=== PATIENT | male | born 1985 | race Hispanic/Latino ===

== ENCOUNTER 2019-09-26 13:00 | Inpatient (IN) | payer OTHER ==
[~2019-09-26] VITALS: Ht 160 cm; Wt 78.9 kg
[2019-09-26] MEDS ORDERED: LIDOCAINE HCL 1% 20 ML VIAL ONE (13:07)
[2019-09-26 13:19] LABS: BASOPHILS % (AUTO) 0.3 % (0.0-5.0); EOSINOPHILS % (AUTO) 0.4 % (0.0-8.0); HEMATOCRIT 46.5 % (42-54); LYMPHOCYTES % (AUTO) 6.9 % (21.0-51.0); MEAN CORPUSCULAR HEMOGLOBIN 30.8 pg (27.0-33.0); MEAN CORPUSCULAR HGB CONC 35.1 g/dL (32.0-36.0); MEAN CORPUSCULAR VOLUME 87.9 fL (79-99); MONOCYTES % (AUTO) 5.9 % (3.0-13.0); NEUTROPHILS % (AUTO) 86.1 % (40.0-77.0); PLATELET COUNT (AUTO) 224 K/uL (130-400); RED BLOOD CELL COUNT(AUTO) 5.29 MIL/uL (4.50-6.20); RED CELL DISTRIBUTION WIDTH 12.3 % (11.0-15.5); WHITE BLOOD COUNT (AUTO) 11.3 K/uL (4.8-10.8)
[2019-09-26] MEDS ORDERED: IOHEXOL 350 MG/ML 100ML INFUS..BTL IV ONE (13:24)
[2019-09-26 13:39] LABS: CARBON DIOXIDE 25 mmol/L (21-32); CHLORIDE 97 mmol/L (101-111); CREATININE 1.3 mg/dL (0.5-1.5); GLOMERULAR FILTR. RATE CALC 67 mL/min (>60); GLUCOSE,RANDOM 126 mg/dL (70-105); POTASSIUM 3.3 mmol/L (3.5-5.1); SODIUM SERUM 133 mmol/L (136-145); UREA NITROGEN, BLOOD 14 mg/dL (7-18)
[2019-09-26 13:43] LABS: ALANINE AMINOTRANSFERASE 26 U/L (12-78); ALBUMIN 4.4 g/dL (3.5-5.0); ASPARTATE AMINOTRANSFERASE 22 U/L (10-37); BILIRUBIN,TOTAL 0.2 mg/dL (0.2-1.0); TOTAL PROTEIN, SERUM 7.9 g/dL (6.0-8.3)
[2019-09-26 13:46] LABS: ALCOHOL, BLOOD < 3 mg/dL (0-10)
[2019-09-26 13:51] LABS: INR 0.92 (0.85-1.15); PARTIAL THROMBOPLASTIN TIME 22.9 SEC (26.3-35.5)
[2019-09-26] MEDS ORDERED: LORAZEPAM 2 MG/ML 1 ML VIAL ONE (13:57)
[2019-09-26] MEDS ORDERED: CEFAZOLIN SODIUM 1 GM VIAL ONE ×2 (13:57→18:52)
[2019-09-26] MEDS ORDERED: TETANUS/DIPHTHERIA TOXOID [ADULT] 0.5 ML VIAL IM ONE (13:58)
[2019-09-26 14:29] LABS: ACETAMINOPHEN < 1 mcg/mL (10-29); SALICYLATE < 2.8 mg/dL (2.8-20.0)
[2019-09-26 14:42] LABS: APPEARANCE,URINE Clear (CLEAR); BILIRUBIN,URINE Negative (NEGATIVE); COLOR,URINE Yellow (YELLOW); GLUCOSE, URINE (UA) Negative (NEGATIVE); KETONES,URINE Negative (NEGATIVE); LEUKOCYTE ESTERASE ,URINE Negative (NEGATIVE); NITRATE,URINE Negative (NEGATIVE); OCCULT BLOOD,URINE Negative (NEGATIVE); PROTEIN,URINE Trace mg/dL (NEGATIVE)
[2019-09-26 14:50] LABS: AMPHET/METH SCREEN,URINE POSITIVE (NEGATIVE); BACTERIA,URINE Rare /HPF (None Seen); BARBITURATE SCREEN, URINE NEGATIVE (NEGATIVE); BENZODIAZEPINES SCREEN,URINE NEGATIVE (NEGATIVE); CANNABINOID SCREEN,URINE NEGATIVE (NEGATIVE); COCAINE SCREEN,URINE POSITIVE (NEGATIVE); OPIATE SCREEN,URINE NEGATIVE (NEGATIVE); PHENCYCLIDINE SCREEN,URINE NEGATIVE (NEGATIVE); RBC,URINE 0-1 /HPF (0-1); SPERM,URINE Rare /HPF (None Seen); SQUAMOUS EPITHELIAL CELL,UR Rare /HPF (0-2); WBC,URINE 0-1 /HPF (0-1)
[2019-09-26] MEDS ORDERED: SODIUM CHLORIDE 0.9% 100 ML IV ONE (18:52)
[2019-09-26] MEDS ORDERED: ACETAMINOPHEN 325 MG TAB ONE (19:18)
[2019-09-26 21:00] VITALS: BP 110/66
[2019-09-26] MEDS: SODIUM CHLORIDE 0.9% 1000ML 1,000 ML IV SCH (21:00)
[2019-09-26 23:00] VITALS: BP 112/61
[2019-09-27] VITALS (22 sets, daily range): BP systolic 98–140; BP diastolic 54–87
[2019-09-27] MEDS: CEFAZOLIN SODIUM 1 GM VIAL IVP SCH ×4 (01:13→18:51)
[2019-09-27] MEDS: ACETAMINOPHEN 325 MG TAB PO PRN (05:37)
--- NOTE | 2019-09-27 07:00 | NUR ---
PATIENT IS ON A SUICIDAL 1:1. DENIA MONTESSORI TEACHER AT BEDSIDE. ALL POTENTIAL HAZARDS REMOVED FROM ROOM BY SERVICE COUNSELOR. PATIENT DENIES ANY SUICIDAL IDEATION RIGHT NOW, ALSO DENIES DEPRESSIVE DISORDER, STATES THAT HE HAS NEVER SEEN A PSYCHIATRIST. WHEN ASKED ABOUT THE INCIDENT, PATIENT STATED THAT HIS BEHAVIOR WAS MAINLY DUE TO "TOO MUCH DRUGS" UDS POSITIVE FOR COCAINE AND AMPHETAMINES.
[2019-09-27] MEDS ORDERED: LIDOCAINE HCL-MPF 1% 2ML VIAL IV PRN (11:00)
[2019-09-27] MEDS ORDERED: POTASSIUM CHLORIDE 20MEQ/100ML 100 ML IV PRN (11:00)
[2019-09-27] MEDS ORDERED: LIDOCAINE PF 2% 5ML ABBOJECT ONE (12:17)
[2019-09-27] MEDS ORDERED: DEXAMETHASONE SOD PHOSPHATE 10MG/ML 1ML VIAL ONE (12:17)
[2019-09-27] MEDS ORDERED: NEOSTIGMINE 5MG/5ML SYR IV ONE (12:18)
[2019-09-27] MEDS ORDERED: ONDANSETRON HCL 4 MG/2 ML VIAL ONE (12:18)
[2019-09-27] MEDS ORDERED: MIDAZOLAM HCL 1 MG/ML 2ML VIAL ONE (12:18)
[2019-09-27] MEDS ORDERED: PROPOFOL 10 MG/ML 20ML VIAL IV ONE (12:18)
[2019-09-27] MEDS ORDERED: GLYCOPYRROLATE 1 MG/5 ML SYRINGE ONE (12:18)
[2019-09-27] MEDS ORDERED: ROCURONIUM 10MG/1ML SYR 10 MG/ML ML ONE (12:19)
[2019-09-27] MEDS ORDERED: FENTANYL CITRATE PF 50 MCG/1 ML 2ML VIAL ONE ×2 (12:19→13:55)
[2019-09-27] MEDS ORDERED: BUPIVACAINE/PF 0.5% 30ML VIAL ONE (13:15)
[2019-09-27] MEDS ORDERED: LACTATED RINGERS 1000ML 1,000 ML IV ONE (14:48)
--- NOTE | 2019-09-27 14:51 | NUR ---
SS REFERRAL/ Per CM, pt not giving much information, possible suicide attempt. Pt is confidential. Yana spoke to Marilia, pt's nurse. Pt's SISTER CYNDI WEINER [phone] called, asking for pt information. Nurse told them that pt was confidential and nurse could not give any information. Sister upset, stated pt was Schizophrenic and not able to make decisions for self. Nurse requesting family provide psych records with dx. Yana called sister Cyndi and informed her that I can not give any information on pt, but I can listen to any information she wants to provide me on pt. Sister reports that pt has lived in [place] for 7yrs with his other sister, and arrived to the [place] yesterday. Sister in [place] could no longer handle him in his current psychotic state and sister had pt's niece DIMITRI SOLOMON drive him to [place] to be with his mother RUBENS HERNANDEZ [phone]. Pt has never or had kids. 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 Pt never believed he was sick or had mental problems so he never re applied for disability after he turned 16. Per sister, pt has hx of delusions, homicidal thoughts,hearing voices, can be very aggressive and combative. Sister denies any hx of suicidal thoughts or attempts until yesterday. Per sister, yesterday after pt arrived he was acting strange. Pt was delusional, making no sense, did not realize or understand that he was in the [place]. Pt was outside on porch pacing and smoking cigarettes. Pt told family to "go inside". Niece witness pt cut his throat and sister witnessed pt cut his arm. Sister ran to pt and "bear hugged" pt to prevent him from running away until ambulance arrived. Family felt ambulance was taking too long and brought pt to hospital by private car. Family concerned for staff, afraid someone can hurt by pt if he gets aggressive or physical. Family wants pt to be evaluated by psych for possible meds or placement. If pt does not meet criteria for placement, family will take pt back to mothers home. Per family, pt has no DME or in home care services. YANA spoke to nurse Marilia and informed nurse of all information family has provided on pt. Nurse to inform MD of above and family requests.
--- NOTE | 2019-09-27 15:55 | NUR ---
I ASKED PATIENT IF HE WISHED TO REMAIN CONFIDENTIAL IN OUR SYSTEM. I EXPLAINED THAT SINCE HE'S CONFIDENTIAL WE COULDN'T GIVE ANY INFORMATION TO HIS FAMILY OR TRANSFER ANY CALLS. PATIENT VERBALIZED UNDERSTANDING, STATED THAT HE WANTS TO TALK TO HIS SISTER DO WEINER. PATIENT RECEIVED CALL DIRECTLY TO MY SPECTRA NUMBER, CALL WILL SISTER WITH NO ISSUES. I CALLED REGISTRATION TO LET THEM KNOW.
[2019-09-27] MEDS: SODIUM CHLORIDE 0.9% 1000ML 1,000 ML IV SCH (17:06)
[2019-09-27] MEDS ORDERED: ACETAMINOPHEN-CODEINE 300/30MG TAB PO PRN (19:00)
[2019-09-28] MEDS: CEFAZOLIN SODIUM 1 GM VIAL IVP SCH ×3 (00:01→12:03)
[2019-09-28 00:10] VITALS: BP 103/46
[2019-09-28 04:00] VITALS: BP 106/66
[2019-09-28 04:18] LABS: ALBUMIN 3.4 g/dL (3.5-5.0); BILIRUBIN,TOTAL 0.4 mg/dL (0.2-1.0); CREATININE 1.3 mg/dL (0.5-1.5); POTASSIUM 4.5 mmol/L (3.5-5.1); TOTAL PROTEIN, SERUM 6.7 g/dL (6.0-8.3)
[2019-09-28] MEDS: SODIUM CHLORIDE 0.9% 1000ML 1,000 ML IV SCH (05:09)
[2019-09-28 08:00] VITALS: BP 108/69
[2019-09-28 11:23] LABS: BASOPHILS % (AUTO) 0.3 % (0.0-5.0); EOSINOPHILS % (AUTO) 0.3 % (0.0-8.0); LYMPHOCYTES % (AUTO) 14.2 % (21.0-51.0); MEAN CORPUSCULAR HEMOGLOBIN 30.9 pg (27.0-33.0); MEAN CORPUSCULAR HGB CONC 34.4 g/dL (32.0-36.0); MEAN CORPUSCULAR VOLUME 89.8 fL (79-99); MONOCYTES % (AUTO) 6.5 % (3.0-13.0); NEUTROPHILS % (AUTO) 78.4 % (40.0-77.0); PLATELET COUNT (AUTO) 220 K/uL (130-400); RED BLOOD CELL COUNT(AUTO) 4.79 MIL/uL (4.50-6.20); RED CELL DISTRIBUTION WIDTH 12.2 % (11.0-15.5); WHITE BLOOD COUNT (AUTO) 11.7 K/uL (4.8-10.8)
[2019-09-28 11:58] VITALS: BP 105/53
[2019-09-28 16:00] VITALS: BP 115/63
[2019-09-28 20:08] VITALS: BP 122/56
--- NOTE | 2019-09-28 21:36 | NUR ---
NOTE RECEIVED CALL FROM PSYCH PARTITION ASSEMBLER SAYS SHE HAS NOT GOTTEN DOCUMENTS VIA EMAIL SHE HAD PROVIDED EARLIER TO [facility] NURSE AND CHILDREN'S MINISTER. PROVIDED NOW A FAX NUMBER TO HAVE DOCUMENTS SENT. INFORMATION GIVEN TO CHILDREN'S MINISTER AND WAS CARRIED OUT.
--- NOTE | 2019-09-28 22:30 | NUR ---
NOTE RECEIVED CALL FROM PSYCH SEVERITY OF ILLNESS COORDINATOR. SAYS THAT HAS HEARD FROM [facility] ABOUT ACCEPTANCE PATIENT IS LIKELY TO BE ACCEPTED. SAYS SHE IS AWAITING ON ANOTHER FACILITY WELL. ASKED IF WE HAD CLEARANCE IN CHART. DISCUSSED WITH HER THAT I DID NOT SEE ANY ORDER OR DICTATION NOTE FROM PRIMARY MD DR. GUTIERREZ/ANASTASIA CLEARING PATIENT. ONLY OK FROM CONSULTING DR. MUNOZ. SHE SAYS IT IS NEEDED FROM PRIMARY BEFORE PROCEEDING. CONTACTED BREAD RACKER LAN Romero SAYS SHE WILL TRY TO CONTACT DAYSHIFT NURSE ABOUT IT AND IN MEAN TIME ILL BE PAGING DR. GUTIERREZ VIA ANSWERING SERVICE.
--- NOTE | 2019-09-28 23:10 | NUR ---
NOTE SPOKE TO EXTRACTOR MACHINE OPERATOR FOR UPDATE. NO CALL BACK HAS BEEN OBTAINED FROM DR. GUTIERREZ. SHE SAYS IF NO CALL BACK YET FROM FOR CLEARANCE FROM PRIMARY MD THEN SHE WILL HAVE TO RETURN TO THIS TOMORROW ONCE CLEARANCE IS OBTAINED. LEFT HER PHONE NUMBERS TO CONTACT HER IN AM. SHE ALSO ASKED TO SPEAK TO PATIENT AND HAD HIM COME TO PHONE. SPOKE TO GLASS LAMINATING OPERATOR AND UPDATED ON SITUATION. SHE SAYS SHE ALSO WAS NOT ABLE TO CONTACT DAYSHIFT NURSE. ADVISED TO TRY AGAIN IN MORNING.
--- NOTE | 2019-09-28 23:58 | NUR ---
NOTE RECEIVED CALL FROM PSYCH PLATE COLORER TO INFORM ME THAT SHE WILL BE SENDING AND OFFICER TO GUARD PATIENT SINCE WE ARE NOT ABLE TO DETAIN HIM IF HE CHOOSES TO GO AMA. SHE EXPLAINED THAT SHE CONSIDERS PATIENT A FLIGHT RISK BASED ON HER CONVERSATION WITH HIM EARLIER TODAY WHEN HE DID NOT WANT TO RECEIVE TREATMENT AT THAT TIME. ON HER LAST CONVERSATION WITH HIM HE WAS WILLING AND ACCEPTING.
--- NOTE | 2019-09-29 00:20 | NUR ---
NOTE OFFICER HERE TO GUARD PATIENT, SAYS WILL STAY UNTIL MORNING WHEN HE WILL GET RELIEVED, BUT WILL NOT BE IN ROOM WITH PATIENT. UPDATED EXTRUSION SUPERVISOR. SITTER WILL REMAIN AT BEDSIDE.
[2019-09-29 00:32] VITALS: BP 97/47
[2019-09-29] MEDS: CEFAZOLIN SODIUM 1 GM VIAL IVP SCH ×3 (00:42→12:10)
[2019-09-29 04:12] VITALS: BP 98/45
--- NOTE | 2019-09-29 06:41 | NUR ---
NOTE PAGED DR. GUTIERREZ VIA ANSWERING SERVICE TO OBTAIN CLEARANCE ORDER.
--- NOTE | 2019-09-29 09:53 | NUR ---
DR GUTIERREZ ROUNDED AND MEDICALLY CLEARED PT FROM HIS STAND POINT.
[2019-09-29] MEDS: ACETAMINOPHEN 325 MG TAB PO PRN (12:14)
--- NOTE | 2019-09-29 15:00 | NUR ---
cm note primary nurse states pt has been screened by ashtyn schultz and are recommending tansfer to [facility]. call made to [facility] , accepting information spoke to Estefani property preservation specialist. and provided accepting info, and # to call report. provided to primary nurse, HS updated.
--- NOTE | 2019-09-29 15:50 | NUR ---
SPOKE TO GUILLERMO AT [facility] TO GIVE REPORT ON PT. REMOVED PT IV, TIP INTACT. REVIEWED D/C INSTRUCTIONS AND PT STATED UNDERSTANDING. OFFICER ESCORTED PT TO FACILITY.
== END 2019-09-29 16:00 | disposition home or self-care (01) | DRG 983 ==
LOC: EDH 13:00 → EEVIPCON 13:01 → EDHIP 13:01 → 3BH 20:10
PROVIDERS: ADMIT Student in an Organized Health Care Education/Training Program; ATTEND Student in an Organized Health Care Education/Training Program
PROC: 3E0234Z Introduction of Serum, Toxoid and Vaccine into Muscle, Percutaneous Approach (ICD-10-PCS; 2019-09-27)
PROC: 0KBD0ZZ Excision of Left Hand Muscle, Open Approach (ICD-10-PCS; principal; 2019-09-27 13:45)
DX: S61.512A Laceration without foreign body of left wrist, initial encounter (principal); S11.91XA Laceration without foreign body of unspecified part of neck, initial encounter; F14.10 Cocaine abuse, uncomplicated; F15.10 Other stimulant abuse, uncomplicated; X78.8XXA Intentional self-harm by other sharp object, initial encounter; Y93.89 Activity, other specified; Y92.89 Other specified places as the place of occurrence of the external cause; Y99.8 Other external cause status; Z23 Encounter for immunization
CPT/HCPCS: 36415; 70450; 70498; 71275; 80053; 80305; 81001; 85025; 85610; 85730; 86850; 86900; 86901; 90714; 93005; G0378; G0480; G0481; J0690; J1100; J2001; J2060; J2250; J2405; J2704; J2710; J3010; J3490; J7030; J7120; Q9967

== ENCOUNTER 2020-05-06 20:40 | Emergency (ER) | payer OTHER ==
[2020-05-06] MEDS ORDERED: CLINDAMYCIN HCL 150 MG CAP ONE (21:38)
== END 2020-05-06 22:14 | disposition home or self-care (01) ==
LOC: EDH 20:40
DX: S61.511D Laceration without foreign body of right wrist, subsequent encounter (principal); S61.512D Laceration without foreign body of left wrist, subsequent encounter; L03.114 Cellulitis of left upper limb; L03.113 Cellulitis of right upper limb; F32.9 Major depressive disorder, single episode, unspecified; X58.XXXD Exposure to other specified factors, subsequent encounter